=== PATIENT | male | born 1950 | race Caucasian/White ===

== ENCOUNTER → 2017-06-03 | Outpatient (REF) ==
[~2017-06-03] MED LIST: ALLO100T70 PO; ASP300S PO; ONDA4TAB PO
== END ==
LOC: AUD 09:00
PROVIDERS: ATTEND Internal Medicine
DX: Z01.10 Encounter for examination of ears and hearing without abnormal findings (principal)
CPT/HCPCS: 92552

== ENCOUNTER → 2018-05-26 | Outpatient (REF) | LOC: AUD 10:30 | PROVIDERS: ATTEND Internal Medicine | DX: Z01.12 Encounter for hearing conservation and treatment (principal) | CPT/HCPCS: 92552 ==